=== PATIENT | male | born 1955 | race African-American/Black ===

== ENCOUNTER 2021-05-28 19:14 | Inpatient (IN) | payer MEDICARE, MEDICAID ==
[2021-05-28 21:52] VITALS: BMI 22.4
[2021-05-28] MEDS ORDERED: Senokot S 8.6-50 MG TAB PO PRN (22:42)
[2021-05-28] MEDS ORDERED: HYDROcodone/Acetaminophen 5/325 mg Tablet PO PRN (22:42)
[2021-05-28] MEDS ORDERED: Ondansetron PF 4 MG/2 ML Vial IVP PRN (22:42)
[2021-05-28] MEDS ORDERED: HYDROcodone/Acetaminophen 7.5/325 mg Tablet PO PRN (22:42)
[2021-05-28] MEDS ORDERED: Melatonin 3 MG TAB PO PRN (22:57)
[2021-05-28] MEDS: Sodium Chloride 0.9% 1,000 ML IV SCH (23:17)
[2021-05-28] MEDS: Nicotine 14 MG PATCH TD SCH (23:18)
[2021-05-28] MEDS ORDERED: Lorazepam 2 MG/ML VIAL SLOW IVP PRN (23:42)
[2021-05-29] MEDS ORDERED: HumaLOG 300 UNITS/3 ML VIAL SC PRN ×2 (00:18)
[2021-05-29] MEDS ORDERED: Dextrose 50% Abboject 50 ML SYRINGE SLOW IVP PRN (00:18)
[2021-05-29] MEDS ORDERED: Insulin Regular 300 UNITS/3 ML VIAL SC PRN (00:18)
[2021-05-29] MEDS ORDERED: Dextrose 5% in Water 1,000 ML IV PRN (00:18)
[2021-05-29] MEDS: hydrALAZINE 20 MG/ML VIAL SLOW IVP PRN (03:30)
[2021-05-29 07:18] LABS: #Eosinphils 0.1 thou/uL (0.0-0.7); #Lymphocytes 1.1 thou/uL (1.20-3.40); #Monocytes 0.4 thou/uL (0.11-0.59); #Neutrophils 2.7 thou/uL (1.40-6.50); %Basophils 0.4 % (0.0-1.0); %Eosinophils 2.5 % (0.0-10.0); %Lymphocytes 24.7 % (21.0-51.0); %Monocytes 10.1 % (0.0-10.0); %Neutrophils 62.3 % (42.0-75.0); Hemoglobin 9.1 g/dL (14.0-18.0); Mean Corpuscular HGB CONC 34.2 g/dL (32.0-36.0); Mean Corpuscular Hemoglobin 34.1 pg (27.0-31.0); Mean Corpuscular Volume 99.7 fL (78.0-98.0); Mean Platelet Volume 8.8 fL (7.4-10.4); Platelet Count 85 thou/uL (130-400); RBC Distribution Width 14.1 % (11.5-14.5); Red Blood Cell (RBC) Count 2.66 mill/uL (4.70-6.10); White Blood Cell (WBC) Count 4.4 thou/uL (4.8-10.8)
[2021-05-29 07:48] LABS: Albumin 3.1 g/dL (3.4-4.8); Anion Gap 13 mmol/L (10-20); BUN (Urea Nitrogen) 47 mg/dL (8.4-25.7); Bilirubin, Total 0.2 mg/dL (0.2-1.2); Calc. Creatinine Clearance 16 mL/min (70-130); Calcium 9.2 mg/dL (7.8-10.44); Carbon Dioxide 20 mmol/L (23-31); Chloride 110 mmol/L (98-107); Globulin 2.5 g/dL (2.4-3.5); Glucose 84 mg/dL (80-115); Potassium 4.2 mmol/L (3.5-5.1); Protein, Total 5.6 g/dL (5.8-8.1); Sodium 139 mmol/L (136-145)
[2021-05-29 07:49] LABS: ALT (SGPT) Less than 7 U/L (8-55); AST (SGOT) 4 U/L (5-34); Alkaline Phosphatase 36 U/L (40-110)
[2021-05-29 07:53] LABS: Hemoglobin A1c 5.1 % (4.0-6.0)
[2021-05-29] MEDS ORDERED: ATENOLOL 100 MG PO SCH (09:00)
[2021-05-29] MEDS ORDERED: Non-Formulary Item 1 EACH (Ferrous Sulfate [Ferrous Sulfate] 325 MG Tab) PO SCH (09:00)
[2021-05-29] MEDS ORDERED: Non-Formulary Item 1 EACH (Hydralazine Hcl [Hydralazine Hcl] 100 MG Tablet) PO SCH (09:00)
[2021-05-29] MEDS: NIFEdipine XL 60 MG TAB PO SCH (09:25)
[2021-05-29] MEDS: Atenolol 50 MG TAB PO SCH (09:25)
[2021-05-29] MEDS: Heparin 5,000 UNITS/ML VIAL SC SCH ×2 (09:25→20:37)
[2021-05-29] MEDS: Ferrous Sulfate 325 MG TAB PO SCH (09:25)
[2021-05-29] MEDS: hydrALAZINE 25 MG TAB PO SCH ×3 (09:26→20:38)
[2021-05-29 13:19] LABS: SARS-CoV-2 PCR by NAA Not Detected (NotDetected)
[2021-05-29] MEDS: Sodium Chloride 0.9% 1,000 ML IV SCH (16:44)
[2021-05-29] MEDS: Albumin 25% 25 GM/100 ML BOT IVPB SCH ×2 (16:44→20:37)
[2021-05-29] MEDS: Citalopram 20 MG TAB PO SCH (20:39)
[2021-05-30] MEDS: Nicotine 14 MG PATCH TD SCH ×2 (02:00→23:49)
[2021-05-30] MEDS: Albumin 25% 25 GM/100 ML BOT IVPB SCH ×5 (02:00→17:31)
[2021-05-30] MEDS: Sodium Chloride 0.9% 1,000 ML IV SCH ×2 (02:35→15:46)
[2021-05-30] MEDS: NIFEdipine XL 60 MG TAB PO SCH (08:30)
[2021-05-30] MEDS: hydrALAZINE 25 MG TAB PO SCH ×3 (08:31→20:10)
[2021-05-30] MEDS: Atenolol 50 MG TAB PO SCH (08:31)
[2021-05-30] MEDS: Ferrous Sulfate 325 MG TAB PO SCH (08:31)
[2021-05-30] MEDS: Heparin 5,000 UNITS/ML VIAL SC SCH ×2 (08:31→20:10)
[2021-05-30 11:45] LABS: Chloride 111 mmol/L (98-107); Sodium 141 mmol/L (136-145)
[2021-05-30 11:46] LABS: Calcium 9.3 mg/dL (7.8-10.44); Glucose 90 mg/dL (80-115)
[2021-05-30 11:48] LABS: Anion Gap 12 mmol/L (10-20); Carbon Dioxide 22 mmol/L (23-31)
[2021-05-30 11:50] LABS: BUN (Urea Nitrogen) 41 mg/dL (8.4-25.7); Calc. Creatinine Clearance 17 mL/min (70-130)
[2021-05-30] MEDS: hydrALAZINE 20 MG/ML VIAL SLOW IVP PRN (12:23)
[2021-05-30] MEDS: Citalopram 20 MG TAB PO SCH (20:10)
[2021-05-31] MEDS: Albumin 25% 25 GM/100 ML BOT IVPB SCH ×3 (00:16→13:51)
[2021-05-31] MEDS: Sodium Chloride 0.9% 1,000 ML IV SCH ×2 (05:13→11:00)
[2021-05-31 08:52] LABS: #Eosinphils 0.1 thou/uL (0.0-0.7); #Lymphocytes 1.1 thou/uL (1.20-3.40); #Monocytes 0.4 thou/uL (0.11-0.59); #Neutrophils 2.7 thou/uL (1.40-6.50); %Basophils 0.7 % (0.0-1.0); %Eosinophils 2.3 % (0.0-10.0); %Lymphocytes 25.2 % (21.0-51.0); %Monocytes 9.9 % (0.0-10.0); %Neutrophils 61.9 % (42.0-75.0); Hemoglobin 7.7 g/dL (14.0-18.0); Mean Corpuscular Hemoglobin 35.3 pg (27.0-31.0); Mean Corpuscular Volume 98.1 fL (78.0-98.0); Mean Platelet Volume 9.2 fL (7.4-10.4); Platelet Count 66 thou/uL (130-400); RBC Distribution Width 14.1 % (11.5-14.5); Red Blood Cell (RBC) Count 2.19 mill/uL (4.70-6.10); White Blood Cell (WBC) Count 4.3 thou/uL (4.8-10.8)
[2021-05-31] MEDS: hydrALAZINE 25 MG TAB PO SCH ×3 (09:00→20:41)
[2021-05-31] MEDS: NIFEdipine XL 60 MG TAB PO SCH (09:00)
[2021-05-31] MEDS: Atenolol 50 MG TAB PO SCH (09:01)
[2021-05-31] MEDS: Ferrous Sulfate 325 MG TAB PO SCH (09:01)
[2021-05-31] MEDS: Heparin 5,000 UNITS/ML VIAL SC SCH ×2 (09:01→20:59)
[2021-05-31 09:19] LABS: Anion Gap 14 mmol/L (10-20); BUN (Urea Nitrogen) 37 mg/dL (8.4-25.7); Calc. Creatinine Clearance 18 mL/min (70-130); Calcium 9.8 mg/dL (7.8-10.44); Carbon Dioxide 21 mmol/L (23-31); Chloride 110 mmol/L (98-107); Glucose 94 mg/dL (80-115); Potassium 3.8 mmol/L (3.5-5.1); Sodium 141 mmol/L (136-145)
[2021-05-31] MEDS: Citalopram 20 MG TAB PO SCH (20:40)
[2021-05-31] MEDS: Nicotine 14 MG PATCH TD SCH (23:21)
[2021-06-01] MEDS: hydrALAZINE 20 MG/ML VIAL SLOW IVP PRN ×2 (02:28→13:46)
[2021-06-01] MEDS: Acetaminophen 325 MG TAB PO PRN ×2 (02:30→14:11)
[2021-06-01 06:37] LABS: #Eosinphils 0.1 thou/uL (0.0-0.7); #Lymphocytes 1.1 thou/uL (1.20-3.40); #Monocytes 0.9 thou/uL (0.11-0.59); #Neutrophils 5.9 thou/uL (1.40-6.50); %Basophils 0.4 % (0.0-1.0); %Eosinophils 1.4 % (0.0-10.0); %Lymphocytes 13.7 % (21.0-51.0); %Monocytes 11.3 % (0.0-10.0); %Neutrophils 73.2 % (42.0-75.0); Hemoglobin 8.6 g/dL (14.0-18.0); Mean Corpuscular HGB CONC 34.9 g/dL (32.0-36.0); Mean Corpuscular Hemoglobin 34.6 pg (27.0-31.0); Mean Corpuscular Volume 99.1 fL (78.0-98.0); Mean Platelet Volume 9.1 fL (7.4-10.4); Platelet Count 95 thou/uL (130-400); RBC Distribution Width 14.1 % (11.5-14.5)
[2021-06-01 06:52] LABS: Anion Gap 14 mmol/L (10-20); BUN (Urea Nitrogen) 38 mg/dL (8.4-25.7); Calc. Creatinine Clearance 18 mL/min (70-130); Calcium 9.7 mg/dL (7.8-10.44); Carbon Dioxide 19 mmol/L (23-31); Chloride 111 mmol/L (98-107); Glucose 92 mg/dL (80-115); Potassium 3.7 mmol/L (3.5-5.1); Sodium 140 mmol/L (136-145)
[2021-06-01] MEDS: hydrALAZINE 25 MG TAB PO SCH ×3 (10:14→21:52)
[2021-06-01] MEDS: NIFEdipine XL 60 MG TAB PO SCH (10:15)
[2021-06-01] MEDS: Atenolol 50 MG TAB PO SCH (10:15)
[2021-06-01] MEDS: Heparin 5,000 UNITS/ML VIAL SC SCH ×2 (10:16→21:53)
[2021-06-01] MEDS: Ferrous Sulfate 325 MG TAB PO SCH (10:17)
[2021-06-01] MEDS ORDERED: Epoetin (ESRD) 20,000 UNITS/ML SC SCH (11:30)
[2021-06-01] MEDS ORDERED: EPOETIN ALFA-EPBX (ESRD) 10,000 UNIT/ML VIAL SC SCH (12:00)
[2021-06-01] MEDS: methylPREDNISolone Sod Succ 40 MG VIAL IVP SCH (16:38)
[2021-06-01] MEDS: Clindamycin/D5W 300 MG in Premix Bag 1 BAG IVPB SCH ×2 (16:41→21:53)
[2021-06-01] MEDS: Sodium Chloride 0.9% 1,000 ML IV SCH (17:11)
[2021-06-01] MEDS ORDERED: Clindamycin/D5W 300 MG/50 ML BAG IVPB SCH (18:00)
[2021-06-01] MEDS: Citalopram 20 MG TAB PO SCH (21:52)
[2021-06-01] MEDS ORDERED: Divalproex Sodium 125 mg Sprinkle Capsule PO SCH (23:45)
[2021-06-02] MEDS: methylPREDNISolone Sod Succ 40 MG VIAL IVP SCH ×2 (00:55→09:27)
[2021-06-02] MEDS: Nicotine 14 MG PATCH TD SCH (01:26)
[2021-06-02] MEDS: Clindamycin/D5W 300 MG in Premix Bag 1 BAG IVPB SCH ×2 (04:35→17:32)
[2021-06-02] MEDS ORDERED: Clindamycin/D5W 300 MG in Premix Bag 1 BAG IVPB SCH (09:00)
[2021-06-02] MEDS: hydrALAZINE 25 MG TAB PO SCH ×3 (09:10→22:38)
[2021-06-02] MEDS: Divalproex Sodium 125 mg Sprinkle Capsule PO SCH ×2 (09:12→22:38)
[2021-06-02] MEDS: Atenolol 50 MG TAB PO SCH (09:12)
[2021-06-02] MEDS: Ferrous Sulfate 325 MG TAB PO SCH (09:12)
[2021-06-02] MEDS: Heparin 5,000 UNITS/ML VIAL SC SCH ×2 (09:13→22:38)
[2021-06-02] MEDS: NIFEdipine XL 60 MG TAB PO SCH (09:13)
[2021-06-02] MEDS: Citalopram 20 MG TAB PO SCH (22:38)
[2021-06-03] MEDS: Nicotine 14 MG PATCH TD SCH (01:01)
[2021-06-03] MEDS: Clindamycin/D5W 300 MG in Premix Bag 1 BAG IVPB SCH ×2 (01:01→09:47)
[2021-06-03 06:21] LABS: Anion Gap 13 mmol/L (10-20); BUN (Urea Nitrogen) 39 mg/dL (8.4-25.7); Calc. Creatinine Clearance 18 mL/min (70-130); Calcium 10.5 mg/dL (7.8-10.44); Carbon Dioxide 22 mmol/L (23-31); Chloride 110 mmol/L (98-107); Glucose 91 mg/dL (80-115); Potassium 3.6 mmol/L (3.5-5.1); Sodium 141 mmol/L (136-145)
[2021-06-03] MEDS: NIFEdipine XL 60 MG TAB PO SCH (09:45)
[2021-06-03] MEDS: hydrALAZINE 25 MG TAB PO SCH (09:45)
[2021-06-03] MEDS: Heparin 5,000 UNITS/ML VIAL SC SCH (09:46)
[2021-06-03] MEDS: Divalproex Sodium 125 mg Sprinkle Capsule PO SCH (09:46)
[2021-06-03] MEDS: Ferrous Sulfate 325 MG TAB PO SCH (09:46)
[2021-06-03] MEDS: Atenolol 50 MG TAB PO SCH (09:46)
[2021-06-03 11:51] VITALS: BP 179/67; TEMP 99.1
[2021-06-03] MEDS ORDERED: NIFEdipine XL 60 MG TAB PO SCH (21:00)
== END 2021-06-03 14:37 | DRG 682 ==
LOC: SURG A 19:51 → OBSVTOIN 22:42
PROVIDERS: ADMIT Family Medicine; ATTEND Internal Medicine
DX: N17.9 Acute kidney failure, unspecified (principal); J69.0 Pneumonitis due to inhalation of food and vomit; I69.354 Hemiplegia and hemiparesis following cerebral infarction affecting left non-dominant side; N18.4 Chronic kidney disease, stage 4 (severe); Z20.822 Contact with and (suspected) exposure to COVID-19; E11.22 Type 2 diabetes mellitus with diabetic chronic kidney disease; I12.9 Hypertensive chronic kidney disease with stage 1 through stage 4 chronic kidney disease, or unspecified chronic kidney disease; F03.90 Unspecified dementia, unspecified severity, without behavioral disturbance, psychotic disturbance, mood disturbance, and anxiety; G40.909 Epilepsy, unspecified, not intractable, without status epilepticus; E78.5 Hyperlipidemia, unspecified; D63.1 Anemia in chronic kidney disease; F39 Unspecified mood [affective] disorder; Z88.8 Allergy status to other drugs, medicaments and biological substances; Z91.09 Other allergy status, other than to drugs and biological substances; Z79.899 Other long term (current) drug therapy
CPT/HCPCS: 36415; 36416; 71045; 80048; 80053; 82040; 83036; 83735; 84100; 85025; J0360; J1644; J1815; J2920; J3490; J7050; P9047; Q5105; U0003; U0005